=== PATIENT | female | born 1925 | race Caucasian/White ===

== ENCOUNTER → 2017-03-17 | Outpatient (CLI) | payer MEDICARE, BC ==
[~2017-03-17] MED LIST: ACETAMINOPHEN PO; ACETAMINOPHEN PR; ACTOS PO; ACTOS30 MG PO; ALDACTONE25 MG PO; AMARYL PO; AMARYL2 MG PO; APRESOLINE PO; ASPIRIN PO; ASPIRIN81 M1 PO; ASPIRIN81 M2 PO; ATENOLOL PO; ATENOLOL50 MG PO; CALCIUM 5001 TAB PO; CALCIUM 600 + D1 TA1 PO; CALCIUM CITRAT1 EACH PO; CERTAGEN PO; COUMADIN PO; COUMADIN3 MG PO; COUMADIN4 MG PO; COUMADIN6 MG PO; DARVOCET-N 1001 TA1 PO; FLAGYL PO; FLORASTOR250 M1 PO; FORTEO2.4 ML; FORTEO750 MCG/3 INJ; HYDRALAZINE HCL25 MG PO; HYDROCODON-ACE1 EAC7 PO; IMDUR PO; IMDUR-ER30 M1 DOB; IMDUR-ER30 M1 PO; IMDUR-ER30 MG PO; IRON45 MG PO; K-DUR20 ME1 PO; KCL PO; KEFLEX PO; LASIX PO; LASIX20 MG PO; LODRANE 121 TAB.SR . PO; MACRODANTIN PO; MACRODANTIN50 MG PO; MAGNESIUM PO; MULTI-VITAMIN1 EAC1 PO; OYSTER CALCIUM500 MG PO; PERCOCET PO; POTASSIUM CHLORIDE PO; PRAVACHOL PO; PRAVACHOL80 MG PO; PROCRIT SUBQ; PROCRIT20000 U/ML IJ; SLOW-MAG64 MG PO; STOOL SOFTENER PO; STOOL SOFTENER1 EAC1 PO; STOOL SOFTENER240 MG; STOOL SOFTENER240 MG PO; STOOL SOFTNER; Stool Softener PO; TIMOPTIC XE OU; TIMOPTIC-XE5 M1; TIMOPTIC-XE5 ML OU; TIMOPTIC2.5 ML OP; TRADJENTA5 MG PO; TYLENOL EXTRA500 M1 PO; VALIUM2 MG PO; VICODIN 5/1 TAB 5/50 PO; VIT B-12 PO; VITAMIN B 12 PO; VITAMIN B-121000 MCG PO; VITAMIN B12-FO1 EACH PO; WOMEN'S DAILY1 EACH PO; XALATAN OP; XALATAN OU; ZAROXYLYN PO; ZYLOPRIM PO; ZYLOPRIM100 MG DOB; ZYLOPRIM100 MG PO; [UNRECOGNIZED DRUG - OTHER]; [UNRECOGNIZED DRUG - OTHER] PO
--- NOTE | ~2017-03-17 | CR181 ---
[facility] A Service of [facility] & [facility] RADIOLOGY TEXT RESULTS PATIENT: CONSTANTIN PAGAN LOCATION: [facility] : [birth year] UNIT #: [id number] AGE: [address]: Trevon Varghese MD SEX: F ORDER DR: [id number] [address] [address] [id number] MR#: [id number] Acc #: [id number] NAME: CONSTANTIN PAGAN : 1925 SEX: F STUDY DATE/TIME: 03/17/2017 10:12 UNIT: [facility] ROOM: STUDY DESCRIPTION: CR Lumbar Spine 2 or 3 Views Attending Physician: Trevon Varghese M.D. Referring Physician: Trevon Varghese M.D. Ordering Physician: Trevon Varghese M.D. Primary Care Physician: Trevon Varghese M.D. MEDICAL IMAGING REPORT This report is preliminary unless electronic signature is present. EXAM Lumbar spine series 03/17/2017 1012 hours HISTORY 2-week history of left-sided back pain near pelvic bone. Pain began when patient was receiving help to get up out of bed. COMPARISON CT abdomen and pelvis 06/08/2015 with sagittal and coronal reconstructions. FINDINGS AP, lateral view and a cone lateral view were performed. The technologist indicates that the patient cannot stand and cannot lie flat on the left side for true lateral views. The bones are diffusely osteopenic. There is a compression fracture of L3 with kyphoplasty change which is stable. There is some depression of the superior plate of L2 which appears new compared to sagittal reconstructed images lumbar spine 06/08/2015. No other definite fracture is seen. IMPRESSION Study is limited by osteopenia and difficulty in positioning. There is compression deformity and kyphoplasty change at L3 felt stable. There is very mild compression of the superior endplate of L2 which is new from the sagittally reconstructed images of the lumbar spine 06/08/2015 and could be acute. The remainder of the lumbar spine is felt unchanged. Dictated by... Hannah Craven M.D. THIS IS AN ELECTRONICALLY VERIFIED REPORT Hannah Craven M.D. at 03/18/2017 5:50 PM [facility] A Service of [facility] RADIOLOGY TEXT RESULTS PATIENT: CONSTANTIN PAGAN LOCATION: [facility] : [birth year] UNIT #: [id number] AGE: [address]: Trevon Varghese MD SEX: F ORDER DR: ANAY/van TD: 03/18/2017 14:42 JOB #: [id number] MEDICAL IMAGING REPORT Page 1 of 1
== END | disposition home or self-care (01) ==
LOC: SRAD 09:50
DX: M48.50XA Collapsed vertebra, not elsewhere classified, site unspecified, initial encounter for fracture (principal); M85.88 Other specified disorders of bone density and structure, other site; G95.20 Unspecified cord compression; Z98.890 Other specified postprocedural states
CPT/HCPCS: 72100